=== PATIENT | male | born 1985 | race Caucasian/White ===

== ENCOUNTER → 2020-08-28 14:28 | Outpatient (BNVA) | payer OTHER, SELFPAY | PROVIDERS: Visit Provider Nurse Practitioner Psychiatric/Mental Health | DX: F11.99 Opioid use, unspecified with unspecified opioid-induced disorder (principal); Z51.81 Encounter for therapeutic drug level monitoring | CPT/HCPCS: 80305; 99211 ==

== ENCOUNTER → 2020-09-25 13:23 | Outpatient (BNVA) | payer OTHER, SELFPAY | PROVIDERS: Visit Provider Nurse Practitioner Psychiatric/Mental Health | DX: Z76.89 Persons encountering health services in other specified circumstances (principal) ==

== ENCOUNTER → 2020-10-23 15:00 | Outpatient (BNVA) | payer OTHER, SELFPAY | PROVIDERS: Visit Provider Nurse Practitioner Psychiatric/Mental Health | DX: Z76.89 Persons encountering health services in other specified circumstances (principal) ==

== ENCOUNTER → 2020-11-20 14:41 | Outpatient (BNVA) | payer OTHER, SELFPAY | PROVIDERS: Visit Provider Nurse Practitioner Psychiatric/Mental Health | DX: Z76.89 Persons encountering health services in other specified circumstances (principal) ==

== ENCOUNTER → 2020-12-18 14:35 | Outpatient (BNVA) | payer OTHER, SELFPAY | PROVIDERS: Visit Provider Nurse Practitioner Psychiatric/Mental Health ==

== ENCOUNTER → 2021-01-15 14:33 | Outpatient (BNVA) | payer OTHER, SELFPAY | PROVIDERS: Visit Provider Nurse Practitioner Psychiatric/Mental Health | DX: F11.21 Opioid dependence, in remission (principal) | CPT/HCPCS: 99212 ==

== ENCOUNTER → 2021-02-12 09:08 | Outpatient (BNVA) | payer OTHER, SELFPAY | PROVIDERS: Visit Provider Nurse Practitioner Psychiatric/Mental Health ==

== ENCOUNTER → 2021-03-11 14:40 | Outpatient (BNVA) | payer OTHER, SELFPAY | PROVIDERS: Visit Provider Nurse Practitioner Psychiatric/Mental Health | DX: Z51.81 Encounter for therapeutic drug level monitoring (principal) | CPT/HCPCS: 80305; 99211 ==

== ENCOUNTER → 2021-04-09 14:35 | Outpatient (BNVA) | payer OTHER, SELFPAY | PROVIDERS: Visit Provider Nurse Practitioner Psychiatric/Mental Health ==

== ENCOUNTER → 2021-05-07 14:13 | Outpatient (BNVA) | payer OTHER, SELFPAY | PROVIDERS: Visit Provider Nurse Practitioner Psychiatric/Mental Health ==

== ENCOUNTER → 2021-07-02 14:25 | Outpatient (BNVA) | payer OTHER, SELFPAY | PROVIDERS: Visit Provider Nurse Practitioner Psychiatric/Mental Health ==

== ENCOUNTER → 2021-08-06 16:13 | Outpatient (BNVA) | payer OTHER, SELFPAY | PROVIDERS: Visit Provider Nurse Practitioner Psychiatric/Mental Health ==

== ENCOUNTER → 2021-08-27 15:54 | Outpatient (BNVA) | payer OTHER, SELFPAY | PROVIDERS: Visit Provider Nurse Practitioner Psychiatric/Mental Health ==

== ENCOUNTER → 2021-10-22 14:28 | Outpatient (BNVA) | payer OTHER, SELFPAY | PROVIDERS: Visit Provider Nurse Practitioner Psychiatric/Mental Health | DX: Z51.81 Encounter for therapeutic drug level monitoring (principal); F11.21 Opioid dependence, in remission | CPT/HCPCS: 80305; 99212 ==

== ENCOUNTER → 2022-01-07 16:26 | Outpatient (BNVA) | payer OTHER, SELFPAY | PROVIDERS: Visit Provider Nurse Practitioner Psychiatric/Mental Health ==

== ENCOUNTER → 2022-03-04 16:05 | Outpatient (BNVA) | payer OTHER, SELFPAY | PROVIDERS: Visit Provider Nurse Practitioner Psychiatric/Mental Health | DX: Z13.89 Encounter for screening for other disorder (principal) ==

== ENCOUNTER → 2022-06-03 15:12 | Outpatient (BNVA) | payer OTHER, SELFPAY | PROVIDERS: Visit Provider Nurse Practitioner Psychiatric/Mental Health | DX: Z51.81 Encounter for therapeutic drug level monitoring (principal); F11.21 Opioid dependence, in remission | CPT/HCPCS: 80305; 99212 ==

== ENCOUNTER → 2022-08-27 15:55 | Outpatient (BNVA) | payer OTHER, SELFPAY | PROVIDERS: Visit Provider Nurse Practitioner Psychiatric/Mental Health | DX: Z51.81 Encounter for therapeutic drug level monitoring (principal); F11.21 Opioid dependence, in remission | CPT/HCPCS: 80305; 99212 ==

== ENCOUNTER → 2022-11-25 15:57 | Outpatient (BNVA) | payer OTHER, SELFPAY | PROVIDERS: Visit Provider Nurse Practitioner Psychiatric/Mental Health | DX: Z13.89 Encounter for screening for other disorder (principal) ==

== ENCOUNTER → 2023-02-24 15:49 | Outpatient (BNVA) | payer OTHER, SELFPAY | PROVIDERS: PCP Physician Assistant Medical; Visit Provider Nurse Practitioner Psychiatric/Mental Health | DX: Z51.81 Encounter for therapeutic drug level monitoring (principal); F11.21 Opioid dependence, in remission | CPT/HCPCS: 80305; 99212 ==

== ENCOUNTER → 2023-05-17 09:00 | Outpatient (BNVA) | payer OTHER, SELFPAY | PROVIDERS: PCP Physician Assistant Medical; Visit Provider Nurse Practitioner Psychiatric/Mental Health | DX: F11.21 Opioid dependence, in remission (principal); Z51.81 Encounter for therapeutic drug level monitoring ==

== ENCOUNTER 2023-08-16 09:57 | Outpatient (AMB) | payer OTHER, SELFPAY ==
--- NOTE | 2023-08-16 10:12 | MHC.OFFVIS ---
Intake Vital Signs 08/16/23 10:14 BP 120/80 Blood Pressure Location Lt brachial Position Sitting Pulse 86 Pulse Oximetry (%) 96 Intake Visit Reasons: MAT Visit Allergies No Known Allergies [No Known Allergies*] Allergy (Verified 02/24/23 15:59) HPI MAT Visit HPI Details Patient presents for follow up currently prescribed suboxone 8mg QD patient reports recovery continues to go well and he feels well supported and connected to family and close friends Would like to start tapering his dose. Reviewed options for this and discussed benefits of slow dose decrease [facility] Medical History (Updated 05/17/23 @ 17:28 by Hyun Tidwell CNP) Opioid use disorder, severe, in early remission, on maintenance therapy, dependence Review of Systems Const Reports as per HPI and Reports no additional complaints Physical Exam Vital Signs: Last Vital Signs Pulse 86 08/16/23 10:14 BP 120/80 08/16/23 10:14 Pulse Ox 96 08/16/23 10:14 Const General: cooperative, healthy appearing, no acute distress and alert Nutritional Appearance: well nourished Orientation/consciousness: patient oriented x3 Limitations: no limitations Neuro General: patient oriented x3 Psych Appearance: well kempt Mental Status: mental status grossly normal Speech and movement: Normal speech and movement present Affect: normal affect Attitude: cooperative Thought process: Normal thought process present Thought content: Normal thought content present Insight: Good insight present (Psych) Judgement: Good judgement present (Psych) Assessment & Plan Assessment & Plan (1) Opioid use disorder, severe, in sustained remission, on maintenance therapy: Code(s): F11.21 - Opioid dependence, in remission Plan: suboxone dose to remain at 8mg QD, however changing to 4mg BID. Encouraged to start off by decreasing by 1/4 of film for at least 3 weeks before attempting to decrease again encouraged to call office prior to next appt if necessary follow up 3 months Medications: New buprenorphine-naloxone 4-1 mg (Suboxone) 1 film sublingual BID 60 ea 2RF Discontinued buprenorphine-naloxone 8-2 mg (Suboxone) Discontinued Reason: Doctor's Order 1 film sublingual DAILY 30 film 2RF Coding Level of Care Code Est Pt Level 4 (24051) Diagnoses Opioid use disorder, severe, in sustained remission, on maintenance therapy F11.21
[2023-08-16 10:14] VITALS: BP 120/80; PULSE 86; O2SAT 96
== END 2023-08-16 10:40 | disposition home or self-care (01) ==
LOC: HO.HCC 09:58
PROVIDERS: PCP Physician Assistant Medical; Visit Provider Nurse Practitioner Psychiatric/Mental Health
DX: F11.21 Opioid dependence, in remission (principal)
CPT/HCPCS: 99214

== ENCOUNTER → 2023-08-16 09:57 | Outpatient (BNVA) | payer OTHER, SELFPAY | PROVIDERS: PCP Physician Assistant Medical; Visit Provider Nurse Practitioner Psychiatric/Mental Health | DX: F11.21 Opioid dependence, in remission (principal) | CPT/HCPCS: 99212 ==

== ENCOUNTER 2023-11-15 09:18 | Outpatient (AMB) | payer OTHER, SELFPAY ==
--- NOTE | 2023-11-15 09:20 | A.OFFVISCC_ITS ---
Intake Intake Visit Reasons: MAT VISIT Allergies No Known Allergies [No Known Allergies*] Allergy (Verified 02/24/23 15:59) HPI MAT VISIT HPI Details Patient presents for follow up via teleheath Continues to do well with recovery. Dose is down to 4mg QD, though some days he finds he needs 6mg No questions or concerns at this time [facility] Medical History (Updated 11/15/23 @ 09:22 by Hyun Tidwell CNP) Opioid use disorder, severe, in early remission, on maintenance therapy, depe ndence Review of Systems Const Reports as per HPI and Reports no additional complaints Assessment & Plan Assessment & Plan (1) Opioid use disorder, severe, in sustained remission, on maintenance therapy: Code(s): F11.21 - Opioid dependence, in remission Plan: * continue suboxone at current dose * follow up 3 months in office Medications: Refilled buprenorphine-naloxone 4-1 mg (Suboxone) 1 film sublingual BID 60 ea 2RF Telehealth Telehealth Location of provider rendering services: practice address Location of patient: address on file Patient Identification confirmed using: Name, : Yes Telehealth method: voice only Patient verbally consented to treatment: Yes Patient verbally consented to billing insurance company: Yes Coding Level of Care Code Tele Est Pt Level 3 (61843) Diagnoses Opioid use disorder, severe, in sustained remission, on maintenance therapy F11.21 Time Spent (min) 25 Comment 15 mins with patient, remainder on chart review and documentation
== END 2023-11-15 09:32 | disposition home or self-care (01) ==
PROVIDERS: PCP Physician Assistant Medical; Visit Provider Nurse Practitioner Psychiatric/Mental Health
DX: F11.21 Opioid dependence, in remission (principal)
CPT/HCPCS: 99213

== ENCOUNTER → 2023-11-15 09:18 | Outpatient (BNVA) | payer OTHER, SELFPAY | PROVIDERS: PCP Physician Assistant Medical; Visit Provider Nurse Practitioner Psychiatric/Mental Health ==

== ENCOUNTER 2024-02-16 15:52 | Outpatient (AMB) | payer OTHER, SELFPAY ==
--- NOTE | 2024-02-16 15:54 | MHC.AM.SUB ---
Intake Vital Signs 02/16/24 16:01 BP 130/76 Blood Pressure Location Lt radial Position Sitting Pulse 74 Pulse Source Pulse Oximeter Pulse Oximetry (%) 96 Oxygen Delivery Method Room Air Intake Visit Reasons: MAT VISIT Intake Note: The patient presents for a mat visit Answering Service Agent Required: No Allergies No Known Allergies [No Known Allergies*] Allergy (Verified 02/24/23 15:59) Do you need a note to return to daycare/school/sports/work: No HPI MAT VISIT HPI Details Patient presents for MAT visit Is stable in recovery Reports work life and home life are normal Has no concerns today to discuss Has tapered his suboxone down to 2-4 mg daily. Most days he is only taking 2mg PFSH Medical History (Updated 11/15/23 @ 09:22 by Hyun Tidwell CNP) Opioid use disorder, severe, in early remission, on maintenance therapy, dependence Review of Systems Const Reports as per HPI Physical Exam Vital Signs: Last Vital Signs Pulse 74 02/16/24 16:01 BP 130/76 02/16/24 16:01 Pulse Ox 96 02/16/24 16:01 Oxygen Delivery Method Room Air 02/16/24 16:01 Const General: cooperative and no acute distress Resp Effort & Inspection: normal respiratory effort Psych Appearance: grossly normal Mental Status: mental status grossly normal Speech and movement: Normal speech and movement present Affect: normal affect Attitude: cooperative Assessment & Plan Assessment & Plan (1) Opioid use disorder, severe, in sustained remission, on maintenance therapy: Code(s): F11.21 - Opioid dependence, in remission Plan: -Discussed with him need for updated labwork, he will get done before next visit -Suboxone refilled 4mg daily -Mass pat reviewed -Follow up 3 months telehealth Orders: Orders Comprehensive Met. Panel Today F11.21 - Opioid dependence, in remission Medications: Changed From buprenorphine-naloxone 4-1 mg (Suboxone) 1 film sublingual BID 60 ea 2RF To buprenorphine-naloxone 4-1 mg (Suboxone) 1 film sublingual DAILY 30 ea 2RF Coding Level of Care Code Est Pt Level 3 (32013) Diagnoses Opioid use disorder, severe, in sustained remission, on maintenance therapy F11.21
[2024-02-16 16:01] VITALS: BP 130/76; PULSE 74; O2SAT 96
== END 2024-02-16 16:12 | disposition home or self-care (01) ==
PROVIDERS: PCP Physician Assistant Medical; Visit Provider Nurse Practitioner Family
DX: F11.21 Opioid dependence, in remission (principal)
CPT/HCPCS: 99213

== ENCOUNTER → 2024-02-16 15:52 | Outpatient (BNVA) | payer OTHER, SELFPAY | PROVIDERS: PCP Physician Assistant Medical; Visit Provider Nurse Practitioner Family | DX: F11.21 Opioid dependence, in remission (principal); Z79.899 Other long term (current) drug therapy; Z51.81 Encounter for therapeutic drug level monitoring | CPT/HCPCS: 99212 ==

== ENCOUNTER 2024-05-10 10:03 | Outpatient (AMB) | payer OTHER, SELFPAY ==
--- NOTE | 2024-05-10 10:09 | MHC.AM.SUB ---
Intake Visit Reasons: MAT Allergies No Known Allergies [No Known Allergies*] Allergy (Verified 02/24/23 15:59) [facility] MAT: Details: Patient presents via telehealth for OUD treatment and follow up Reports he has weaned down to 1mg q 48 hours States he is doing well with this dosing, no cravings or withdrawals On vacation now, just bought a new vehicle. He is feeling positive and reports things are going well [facility] Medical History (Updated 11/15/23 @ 09:22 by Hyun Tidwell CNP) Opioid use disorder, severe, in early remission, on maintenance therapy, dependence Review of Systems Const Reports as per [facility] Telehealth Telehealth Telehealth Platform: Telephone Location of provider rendering services: practice address Location of patient: address on file Patient Identification confirmed using: Name, : Yes Telehealth method: voice only Patient verbally consented to treatment: Yes Patient verbally consented to billing insurance company: Yes Patient informed of any privacy concerns related to visit: Yes Minutes spent on Phone/Video with Pt.: 10 Assessment & Plan Assessment & Plan (1) Opioid use disorder, severe, in sustained remission, on maintenance therapy: Code(s): F11.21 - Opioid dependence, in remission Category: Medical Plan: -Mauricio funk reviewed -Refill dose at 2mg daily to make it easier for pt to further decrease his dose -Encouraged him to call [facility] when he is able to completely stop his films if it is prior to his next appt -Follow up 3 months Medications: New buprenorphine-naloxone 2-0.[address] 1 strip/tab under (each) side of tongue 1 film buccal DAILY 30 ea 0RF Discontinued buprenorphine-naloxone 4-1 mg (Suboxone) Discontinued Reason: None 1 film sublingual DAILY 30 ea 2RF
== END 2024-05-10 10:12 | disposition home or self-care (01) ==
PROVIDERS: PCP Physician Assistant Medical; Visit Provider Nurse Practitioner Family
DX: F11.21 Opioid dependence, in remission (principal)
CPT/HCPCS: 99212

== ENCOUNTER → 2024-05-10 10:03 | Outpatient (BNVA) | payer OTHER, SELFPAY | PROVIDERS: PCP Physician Assistant Medical; Visit Provider Nurse Practitioner Family | DX: F11.20 Opioid dependence, uncomplicated (principal) ==

== ENCOUNTER 2024-08-01 14:46 | Outpatient (AMB) | payer OTHER, SELFPAY ==
--- NOTE | 2024-08-01 15:16 | MHC.AM.SUB ---
Intake Visit Reasons: MAT visit Allergies No Known Allergies [No Known Allergies*] Allergy (Verified 02/24/23 15:59) HPI HPI MAT visit: Details: Patient presents for follow up Currently prescribed Suboxone 2mg QD Continues to taper dose with goal of discontinuing medication discussed use of comfort medications if needed he reports he is no longer taking doxepin and finds melatonin to be more effective working FT, spending time with friends future oriented [facility] Medical History (Updated 11/15/23 @ 09:22 by Hyun Tidwell CNP) Opioid use disorder, severe, in early remission, on maintenance therapy, dependence Review of Systems Const Reports as per HPI and Reports no additional complaints Physical Exam Const General: cooperative, healthy appearing, comfortable and well groomed Nutritional Appearance: average body habitus Orientation/consciousness: patient oriented x3 Limitations: no limitations Neuro General: patient oriented x3 Assessment & Plan Assessment & Plan (1) Opioid use disorder, severe, in sustained remission, on maintenance therapy: Code(s): F11.21 - Opioid dependence, in remission Category: Medical Plan: will continue taper on his own will call for refill when needed encouraged to call or message if comfort medications are needed follow up 3 months telehealth Medications: Discontinued doxepin Discontinued Reason: Patient no longer taking 25 mg PO BEDTIME 90 caps 1RF
== END 2024-08-01 15:20 | disposition home or self-care (01) ==
PROVIDERS: PCP Physician Assistant Medical; Visit Provider Nurse Practitioner Psychiatric/Mental Health
DX: F11.21 Opioid dependence, in remission (principal)
CPT/HCPCS: 99214

== ENCOUNTER → 2024-08-01 14:46 | Outpatient (BNVA) | payer OTHER, SELFPAY | PROVIDERS: PCP Physician Assistant Medical; Visit Provider Nurse Practitioner Psychiatric/Mental Health | DX: F11.21 Opioid dependence, in remission (principal) | CPT/HCPCS: 99212 ==

== ENCOUNTER 2024-10-24 12:58 | Outpatient (AMB) | payer OTHER, SELFPAY ==
--- NOTE | 2024-10-24 19:03 | A.OFFVISCC_ITS ---
Intake Visit Reasons: MAT Tele Allergies No Known Allergies [No Known Allergies*] Allergy (Verified 02/24/23 15:59) [facility] MAT Tele: Details: Patient presents for follow up via telehealth Currently prescribed Suboxone 2mg QD He reports he continues to take btwn 1-2mg daily has not moved forward with tapering as he previously has planned to has been working and helping his parents his goal is to obtain employment with his town Denies any changes to medical history, including no new medications Review of Systems Const Reports as per [facility] Telehealth Telehealth Telehealth Platform: Telephone Location of provider rendering services: practice address Location of patient: address on file Patient Identification confirmed using: Name, : Yes Telehealth method: voice only Patient verbally consented to treatment: Yes Patient verbally consented to billing insurance company: Yes Minutes spent on Phone/Video with Pt.: 15 Assessment & Plan Assessment & Plan (1) Opioid use disorder, severe, in sustained remission, on maintenance therapy: Code(s): F11.21 - Opioid dependence, in remission Category: Medical Plan: * continue suboxone at current dose * follow up 3 months [facility] Medical History (Updated 11/15/23 @ 09:22 by Hyun Tidwell CNP) Opioid use disorder, severe, in early remission, on maintenance therapy, dependence
--- OUTSIDE RECORDS SUMMARY | 2024-10-30 19:19 | XMS_ITS | Data Portability ---
Author Organization [facility], Main Office Address [address] [place] [address] Care Team Providers Care Human Resources Manager Manufacturing Name Role Phone [facility] OTHER Assessment Encounter Date Assessment Date Assessment LastModified by Organization Details LastModified Time 10/26/2019 10/26/201910/24 k 2.9, bun 7, creat 0.9 10/23 hgb 7.7, hct 23.6 Not available 10/26/2019 13:50:41 10/29/2019 10/29/201910/29 bun 8, creat 1.1, na 138, k 4.5, wbc 3.98, hgb 8.5, hct 27.0 Not available 10/29/2019 14:41:48 11/01/2019 11/01/201910/29 bun 8, creat 1.1, na 138, k 4.5, wbc 3.98, hgb 8.5, hct 27.0 glord Not available 11/01/2019 11:12:46 11/06/2019 11/06/201910/29 bun 8, creat 1.1, na 138, k 4.5, wbc 3.98, hgb 8.5, hct 27.0 11/05 bun 7, creat 0.9, na 141, k 4.1, wbc 5.65, hgb 9.1, hct 29.7, CRP 70.0, ESR 73 Not available 11/06/2019 09:41:17 Plan of Treatment Reminders Order Date Submit Date Provider Last Modified By Organization Details Last Modified Time Details Appointments None record ed. Lab None record ed. Referral None record ed. Procedures None record ed. Surgeries None record ed. Imaging None record ed. Medication Orders None record ed. Patient TargetsNo targets recorded. Patient InstructionsNo instructions recorded. Reason for Referral None Reported. Problems Name Problem SNOMED Code Status Onset Date Resolution Date Notes Provider Name and Address Organization Details Recorded Time Endocardit is 90750811 Active 2018 Ingrid [facility] 9 11:12:17 Drug abuse 50885747 Active 2018 Ingrid [facility] 9 11:12:17 Acute injury of kidney 1907903103263 4108 [facility] 11:12[facility] Iron deficiency anemia 80012507 [facility] 11:12:20 Peripheral edema 577063196 [facility] 11:12:21 Acute right-side d heart failure 285892806 [facility] 11:12:23 Asthenia 80533316 [facility] 11:15:41 Low back pain 432942601 [facility] 11:15:42 Essential hypertensi on 07775702 Active 2018 Jody Burns MD [address] [place] [address] [address], [place], [address] [facility] NP [employer] [facility] 9 16:15:02 Problem Notes None recorded. Medical Equipment None Reported. Allergies No known drug allergies Vitals Date Recorded Body height Heart rate Body temperature Systolic blood pressure Diastolic blood pressure Provider Name and Address Organization Details Last Updated DateTime 10/26/2019 157.48 cm 115 /min 98.9 [degF] 166 mm[Hg] 100 mm[Hg] Nat Hayes [facility] NP [employer] [facility] 9 13:47:32 Date Recorded Body height Systolic blood pressure Diastolic blood pressure Provider Name and Address Organization Details Last Updated DateTime 10/29/2019 157.48 cm 122 mm[Hg] 87 mm[Hg] Nat Freddy [facility] 10/29/2019 14:38:15 Date Recorded Body height Body mass index (BMI) Body weight Systolic blood pressure Diastolic blood pressure Provider Name and Address Organization Details Last Updated DateTime 11/01/2019 157.48 cm 47.2 kg/m2 383233.8 3 g 122 mm[Hg] 79 mm[Hg] IVIS [address], [address], [place], [address] [facility] 11:10:41 Date Recorded Body height Systolic blood pressure Diastolic blood pressure Provider Name and Address Organization Details Last Updated DateTime 11/06/2019 157.48 cm 140 mm[Hg] 78 mm[Hg] Nat Sealses [facility] 11/06/2019 08:57:22 Date Recorded Body height Body mass index (BMI) Body weight Oxygen saturation Oxygen saturation in Arterial blood by Pulse oximetry Heart rate Respiratory rate Body temperature Systolic blood pressure Diastolic blood pressure Provider Name and Address Organization Details Last Updated DateTime 9 157.48 cm 47.2 kg/m2 700799. 83 g 98 % 98 % 1102 /min 20 /min 98.7 [degF] 143 mm[Hg] 98 mm[Hg] Jody Burns MD [address] [facility], [address], [place], [address] [place] [address] 9 15:38:19 Social History Question Answer Notes LastModified by Organizat ion Details LastModified Time Tobacco Smoking Status Current Every Day Smoker cutting back Not Available [facility] 09/16/2020 03:13:21 Do You Have An Advance Directive? No No Molst - Assume Full Code [id number] Information not available 09/16/2020 What Is Your Level Of Alcohol Consumption? Occasional [id number] Information not available 09/16/2020 How Much Tobacco Do You Chew? None [id number] Information not available 09/16/2020 Do You Or Have You Ever Used E-cigarettes Or Vape? Former User Of Electronic Cigarettes [id number] Information not available 09/16/2020 Do You Have A Medical Power Of Manager Environmental Health? No [id number] Information not available 09/16/2020 What Was The Date Of Your Most Recent Tobacco Screening? 10/15/2019 [id number] Information not available 09/16/2020 Do You Or Have You Ever Used Smokeless Tobacco? Never Used Smokeless Tobacco [id number] Information not available 09/16/2020 How Much Tobacco Do You Smoke? 0.5 PPD [id number] Information not available 09/16/2020 On What Date Was Tobacco Cessation Counseling Provided? 10/15/2019 [id number] Information not available 09/16/2020 Sex: Unknown Functional Status None recorded. Mental Status None recorded. Family History Nothing Reported. Medical History No medical history recorded. Past Encounters Encounter ID Performer Location Encounter Start Date Encounter Closed Date Diagnosis/Indication Diagnosis SNOMED-CT Code Diagnosis ICD10 Code [id number] Ingrid Saunders [facility] on [address] [place] [phone] 10/13/2019 10:36:06 10/30/2019 11:35:27 Drug abuse 67235296 F19.10 Acute inju ry of kidney 4601083023 4154603 N17.9 Iron defic iency anemia 92389580 D50.8 Peripheral edema 9224796 00 R60.1 Endocarditis 98954417 I3 6.8 Acute righ t-sided heart failure 983301621 I50.811 Asthenia 50599360 R53.1 Low back pain 275142948 M54.5 [id number] Jody Burns MD [facility] on [address] [place] [id number] 10/15/2019 13:01:21 10/30/2019 11:43:35 Endocarditis 77487876 I36.8 Drug abuse 12354906 F19. 10 Acute inju ry of kidney 3867993327 1915230 N17.9 Iron defic iency anemia 66015859 D50.8 Peripheral edema 2057879 00 R60.1 Acute righ t-sided heart failure 303886956 I50.811 Asthenia 58973407 R53.1 Low back pain 519368870 M54.5 Diarrhea 64065283 R19.7 [id number] Nat Freddy [facility] on [address] [place] [id number] 10/17/2019 16:39:05 10/30/2019 12:46:02 Endocarditis 46457845 I36.8 Iron defic iency anemia 27058726 D50.8 Acute righ t-sided heart failure 716680808 I50.811 Insomnia 771831174 G47.0 9 [id number] IVIS HORTON [facility] on [address] [place] [id number] 10/19/2019 09:54:51 10/30/2019 12:56:23 Iron deficiency anemia 67207329 D50.8 Acute righ t-sided heart failure 567297184 I50.811 [id number] Nat Hayes [facility] on [address] [place] [id number] 10/22/2019 16:58:55 10/30/2019 12:57:35 Iron deficiency anemia 73550541 D50.8 Acute righ t-sided heart failure 751652955 I50.811 Hypokalemia 41864415 E87 .6 [id number] Nat Hayes [facility] on [address] [place] [id number] 10/26/2019 13:39:28 10/30/2019 16:09:07 Iron deficiency anemia 65153878 D50.8 Essential hypertension 30846592 I10 Hypokalemia 49996626 E87 .6 [id number] Nat Hayes [facility] on [address] [place] [id number] 10/29/2019 14:20:35 11/02/2019 16:23:13 Acute right-sided heart failure 311895282 I50.811 Endocarditis 14162151 I3 6.8 Hypokalemia 18936288 E87 .6 [id number] IVIS [facility] on [address] [place] [id number] 11/01/2019 11:08:28 11/05/2019 16:05:47 Acute right-sided heart failure 568455320 I50.811 Endocarditis 43217928 I3 6.8 [id number] [facility] [address] [place] [id number] 11/06/2019 08:48:47 11/09/2019 11:35:26 Acute right-sided heart failure 798653173 I50.811 Endocarditis 00038667 I3 6.8 [id number] Jody Burns MD [facility] on [address] [place] [address] 11/15/2019 14:09:49 11/23/2019 11:46:34 Endocarditis 26163252 I36.8 Drug abuse 52350585 F19. 10 Acute inju ry of kidney 0330981919 1919607 N17.8 Iron defic iency anemia 65634143 D50.8 Peripheral edema 3285678 00 R60.1 Acute righ t-sided heart failure 367568080 I50.811 Asthenia 20434569 R53.1 Low back pain 156002270 M54.5 Essential hypertension 32373972 I10 Health Concerns Section Related Observation LastModified by Organization Detai ls LastModified Time None Recorded Concern Status LastModified by Organization Details LastModified Time None Recorded Advance Directives Directive N: no molst - assume full co de Payers Encounter Date Sequence Insurance Name Policy Number Policy Rdz Covered Member ID Rdz Member ID Guarantor Name 10/26/2019 1 [facility] (MEDICAID REPLACEMENT - HMO) JACOB Ash [id number] Yuan Mihir 10/29/2019 1 [facility] (MEDICAID REPLACEMENT - HMO) JACOB Ash [id number] Yuan Santaarmando 11/01/2019 1 [facility] (MEDICAID REPLACEMENT - HMO) JACOB Ash [id number] Yuan Santaarmando 11/06/2019 1 [facility] (MEDICAID REPLACEMENT - HMO) JACOB Ash [id number] Yuan Santaarmando 11/15/2019 1 [facility] (MEDICAID REPLACEMENT - HMO) JACOB Ash [id number] Yuan Ash Notes Date Note Type Note Provider Name and Address Organization Details Recorded Time 10/26/2019 text/html 34 yo male seen for report of elevated BP and HR today. Patient denies complaints currently. Recently received blood transfusion due to worsening anemia. Patient denies any dark or black stools or blood in stool. [facility] 10/26/2019 13:50:55 10/29/2019 text/html 34 yo male seen for continued edema to bilateral lower extremities. Patient here for IV antibiotic treatment for endocarditis. Patient denies SOB. [facility] 10/29/2019 14:43:04 11/01/2019 text/html This is a 34 yo male seen for continued edema to bilateral lower extremities and increasing edema to his scrotum today. Patient here for IV antibiotic treatment for endocarditis. He denies any SOB but explains that his testicles are extremely swollen and its getting harder to get comfortable. He denies any redness, warmth or pain, just swelling. Patient has had constant issues with this since admission. IVIS HORTON [address] [facility], [address], [place], [address], [facility] NP [employer] [facility] 11/01/2019 11:14:14 11/06/2019 text/html 34 yo male seen for 30 day routine rounding. 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 Patient continues to c/o significant lower extremity edema. Denies SOB or chest pain. Nat [facility] 11/06/2019 09:43:06 11/15/2019 text/html I am seeing this 34 yo man in anticipation of d/c tomorrow. 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 Echo showed moderate tricuspid regurg and 1.4 cm mass attached to valve. Chest CT showed multiple septic emboli. He has progressed well with therapy, but does still have some ABBASI, but resolves quickly with rest. He will be completing his IV nafcillin tomorrow and will be ready for d/c. He says overall he is feeling much better and feels ready for d/c He was started on suboxone inpt. He feels he will not need that shelter as he was clean for 10 yrs with no other tx, but will continue for now. Went to clinic today to get started on outpt plan. His PMH includes IV drug abuse, lumbar stenosis, endocarditis with right sided HF, anemia, and edema. Jody Burns MD [address] [facility], [address], [place], [address], [facility] 11/15/2019 16:15:41
== END 2024-10-24 14:23 | disposition home or self-care (01) ==
PROVIDERS: PCP Physician Assistant Medical; Visit Provider Nurse Practitioner Psychiatric/Mental Health
DX: F11.21 Opioid dependence, in remission (principal)
CPT/HCPCS: 99213

== ENCOUNTER 2025-01-16 15:44 | Outpatient (AMB) | payer OTHER, SELFPAY ==
--- NOTE | 2025-01-16 16:36 | MHC.AM.SUB ---
Intake Visit Reasons: MAT Office Allergies No Known Allergies [No Known Allergies*] Allergy (Verified 02/24/23 15:59) HPI HPI MAT Office: Details: Patient presents for follow up Currently prescribed Suboxone 2mg daily. 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 no questions or concerns at this time Review of Systems Const Reports as per HPI and Reports no additional complaints Physical Exam Const General: cooperative, healthy appearing, comfortable and well groomed Nutritional Appearance: average body habitus Orientation/consciousness: patient oriented x3 Limitations: no limitations Neuro General: patient oriented x3 [facility] Medical History (Updated 11/15/23 @ 09:22 by Hyun Tidwell CNP) Opioid use disorder, severe, in early remission, on maintenance therapy, dependence Assessment & Plan Assessment & Plan (1) Opioid use disorder, severe, in sustained remission, on maintenance therapy: Code(s): F11.21 - Opioid dependence, in remission Category: Medical Plan: continue suboxone at current dose follow up 6 months
--- OUTSIDE RECORDS SUMMARY | 2025-01-16 19:16 | XMS_ITS | Data Portability ---
Author Organization [facility], Main Office Address [address] [facility] [address] [place] [address] Care Team Providers Care Lidar Scientist Name Role Phone [facility] OTHER Assessment Encounter Date Assessment Date Assessment [...] Address Organization Details Recorded Time Endocardit is 64755995 Active 2018 Ingrid castle [facility] 9 11:12:17 Drug abuse 16957437 Active 2018 Ingrid castle [facility] 9 11:12:17 Acute injury of kidney 7203092965428 4108 Active 2018 [facility] 9 11:12:19 Iron deficiency anemia 93567838 Active 2018 [facility] 9 11:12:20 Peripheral edema 256717357 Active 2018 [facility] 9 11:12:21 Acute right-side d heart failure 719306447 Active 2018 [facility] 9 11:12:23 Asthenia 71998773 Active 2018 [facility] 9 11:15:41 Low back pain 686037345 Active 2018 [facility] 9 11:15:42 Essential hypertensi on 70401155 Active 2018 Jody Burns MD [address] [place] [address] [address], [place], [address] [facility] [employer] [facility] 9 16:15:02 Problem Notes None recorded. Medical Equipment None Reported. Allergies No known drug allergies Vitals Date Recorded Body height Heart rate Body temperature Systolic blood pressure Diastolic blood pressure Provider Name and Address Organization Details Last Updated DateTime 10/26/2019 157.48 cm 115 /min 98.9 [degF] 166 mm[Hg] 100 mm[Hg] Nat Hayes [facility] [employer] [facility] 9 13:47:32 Date Recorded Body height Systolic blood pressure Diastolic blood pressure Provider Name and Address Organization Details Last Updated DateTime 10/29/2019 157.48 cm 122 mm[Hg] 87 mm[Hg] Nat Freddy [facility] 10/29/2019 14:38:15 Date Recorded Body height Body mass index (BMI) Body weight Systolic blood pressure Diastolic blood pressure Provider Name and Address Organization Details Last Updated DateTime 11/01/2019 157.48 cm 47.2 kg/m2 618567.8 3 g 122 mm[Hg] 79 mm[Hg] IVIS [address] [facility], [address], [place], [address] [facility] 9 11:10:41 Date Recorded Body height Systolic blood pressure Diastolic blood pressure Provider Name and Address Organization Details Last Updated DateTime 11/06/2019 157.48 cm 140 mm[Hg] 78 mm[Hg] Nat Sealses [facility] 11/06/2019 08:57:22 Date Recorded Body height Body mass index (BMI) Body weight Oxygen saturation Oxygen saturation in Arterial blood by Pulse oximetry Heart rate Respiratory rate Body temperature Systolic blood pressure Diastolic blood pressure Provider Name and Address Organization Details Last Updated DateTime 9 157.48 cm 47.2 kg/m2 422734. 83 g 98 % 98 % 1102 /min 20 /min 98.7 [degF] 143 mm[Hg] 98 mm[Hg] Jody Burns MD [address] [facility], [address], [place], [address] [place] [address] 9 15:38:19 Social History Question Answer Notes LastModified by Organizat ion Details LastModified Time Tobacco Smoking Status Current Every Day Smoker cutting back Not Available [facility] 09/16/2020 03:13:21 Do You Have An Advance Directive? No No Molst - Assume Full Code [id number] Information not available 09/16/2020 What Is Your Level Of Alcohol Consumption? Occasional [id number] Information not available 09/16/2020 How Much Tobacco Do You Chew? None [id number] Information not available 09/16/2020 Do You Or Have You Ever Used E-cigarettes Or Vape? Former User Of Electronic Cigarettes [id number] Information not available 09/16/2020 Do You Have A Medical Power Of Physician In Private Practice? No [id number] Information not available 09/16/2020 What Was The Date Of Your Most Recent Tobacco Screening? 10/15/2019 [id number] Information not available 09/16/2020 Do You Or Have You Ever Used Smokeless Tobacco? Never Used Smokeless Tobacco [id number] Information not available 09/16/2020 How Much Tobacco Do You Smoke? 0.5 PPD [id number] Information not available 09/16/2020 On What Date Was Tobacco Cessation Counseling Provided? 10/15/2019 [id number] Information not available 09/16/2020 Sex: Unknown Functional Status None recorded. Mental Status None recorded. Family History Nothing Reported. Medical History No medical history recorded. Past Encounters Encounter ID Performer Location Encounter Start Date Encounter Closed Date Diagnosis/Indication Diagnosis SNOMED-CT Code Diagnosis ICD10 Code Diagnosis Note [id number] Ingrid Saunders [facility] on [address] [place] [id number] 10/13/2019 10:36:06 10/30/2019 11:35:27 Drug abuse 74588147 F19.10 started on suboxone in acute care f/u with behavior health Acute inju ry of kidney 6441394748 1436157 N17.9 avoid nephrotoxi c meds as able monitor labs f/u nephrology prn Iron defic iency anemia 67453024 D50.8 hgb 8.3 in acute care, negative for occult blood, low iron. was given IV iron in acute care, now on po iron 324mg qd monitor labs, bowels Peripheral edema 9448483 00 R60.1 +2-3 firm to BLE on lasix 40mg bid for 5 days then to re-eval monitor Endocarditis 62606714 I3 6.8 on 2g nafcillin sodium q4hrs for 35 more days f/u ID Acute righ t-sided heart failure 377715734 I50.811 with fluid overload in acute care, now on lasix 40mg bid x5 days f/u cards prn Asthenia 45995267 R53.1 PT/OT to eval and treat Low back pain 333385042 M54.5 from a few weeks ago apparently after lifting a heavy object on suboxone PT/OT to eval and treat monitor [id number] Jody Burns MD [facility] on [address] [place] [phone] 10/15/2019 13:01:21 10/30/2019 11:43:35 Endocarditis 22348220 I36.8 Continue nafcillin 2 gms q4hrs for 35 more days f/u ID as planned. Labs not done yet. WIll order for tomorrow with ESR and CRP. Monitor weekly. Drug abuse 20401039 F19. 10 Continue suboxone 8/2 qAM and 2/0.5 qPM Provide supportive care. f/u with behavior health as planned. Acute inju ry of kidney 4396035716 1988603 N17.9 Labs not yet done. Will draw in AM aMoid nephrotoxi c meds as able monitor labs f/u nephrology prn Iron defic iency anemia 97286625 D50.8 hgb 8.3 in acute care, negative for occult blood, low iron. was given IV iron in acute care, now on po iron 324 mg qd monitor labs, bowels Peripheral edema 7350695 00 R60.1 +2-3 firm to BLE Continue lasix 40 mg bid for 5 days then to re-eval Monitor edema Acute righ t-sided heart failure 327675963 I50.811 Continues to c/o SOB with exertion, likely due to tricuspid regurg. Continue lasix as above. Monitor resp. status. f/u with cardio prn Asthenia 71031084 R53.1 Deconditio shiraz form illness Needs PT/OT for strengthen ing and function. Low back pain 959461115 M54.5 Some chronic issues, but worsening from a few weeks ago apparently after lifting refrigerat ors. Continue suboxone as above. On split dose to help with pain. PT/OT to eval and treat monitor Will start heat pack per pt. request Diarrhea 41295341 R19.7 Started in hospital, now with more cramps. Not on probiotic. Will start probiotic and use imodium prn. he says he was c. diff neg inpt. Will also start bentyl 20 mg QID. [id number] Nat Hayes [facility] on [address] [place] [address] 10/17/2019 16:39:05 10/30/2019 12:46:02 Endocarditis 10036255 I36.8 IV nafcillin 2 g Q4h x 6 weeks (end date 11/16)Prob ioticPT OT eval and treatF/u with IDMonitor weekly labs Iron defic iency anemia 69724011 D50.8 cont PO ironHgb now 7.5Repeat CBC 10/22 and consider transfusio n if <7 Acute righ t-sided heart failure 848474399 I50.811 Lasix 40 mg dailyAdd daily weightsMon itor fluid status Insomnia 634671816 G47.0 9 Add doxepin 10 mg QHSMonitor for effect [id number] IVIS HORTON [facility] on [address] [place] [phone] 10/19/2019 09:54:51 10/30/2019 12:56:23 Iron deficiency anemia 01704102 D50.8 Patient appears well right now with no complaints of dizziness , lightheade dness or palpitatio nshgb 6.6 today, send to ED for transfusio n as he would not be able to get in until tuesday Acute righ t-sided heart failure 510546727 I50.811 Lasix 80 mg dailyconti nue daily weights, lost 6 lbs from yesterdayM onitor fluid status [id number] Nat Hayes [facility] on [address] [place] [id number] 10/22/2019 16:58:55 10/30/2019 12:57:35 Iron deficiency anemia 90657314 D50.8 s/p 1 unit pRBC 10/19Repea t CBC in AM to ensure improving Acute righ t-sided heart failure 414922085 I50.811 Lasix 80 mg daily until 10/23-if potassium worsening will d/c thisEdema improved Hypokalemia 07180024 E87 .6 Repeat BMP STAT nowStart KCl 40 mEq TID [id number] Nat Hayes [facility] on [address] [place] [id number] 10/26/2019 13:39:28 10/30/2019 16:09:07 Iron deficiency anemia 39861878 D50.8 s/p 1 unit pRBC 10/19Repea t CBC STAT now Essential hypertension 66957689 I10 Start lisinopril 20 mg dailyMonit or bp Hypokalemia 81531522 E87 .6 Repeat BMP STAT nowCurrent ly on KCl 40 mEq TID [id number] Nat Hayes [facility] on [address] [place] [id number] 10/29/2019 14:20:35 11/02/2019 16:23:13 Acute right-sided heart failure 647763422 I50.811 Restart Lasix 40 mg dailyPotas sium 40 mEq TID-decrea se to BID and monitor Monitor weights and edemaNeeds cardiology f/u Endocarditis 91894930 I3 6.8 IV nafcillin 2 g Q4h x 6 weeks (end date 11/16)Prob ioticcont PT CORI/u with IDMonitor weekly labs Hypokalemia 39429511 E87 .6 Potassium level now WNLDecreas e KCl 40 mEq BID Monitor [id number] IVIS [facility] on [address] [place] [id number] 11/01/2019 11:08:28 11/05/2019 16:05:47 Acute right-sided heart failure 786826786 I50.811 Increase lasix to 80 mg daily- give extra 40 mg nowPotassi um 40 mEq BID, will need to monitor BMP with increase in lasix, obtain BMP tor weights and edemaNeeds cardiology f/u Endocarditis 72937275 I3 6.8 IV nafcillin 2 g Q4h x 6 weeks (end date 11/16)Prob ioticcont PT CORI/u with IDMonitor weekly labs [id number] [facility] [address] [place] [id number] 11/06/2019 08:48:47 11/09/2019 11:35:26 Acute right-sided heart failure 547197504 I50.811 Increase lasix to 80 mg BID-if ineffectiv e consider switch to bumexPotas sium 40 mEq TIDAdd 2 g NaCl restrictio nStart metoprolol 25 mg dailyLisin opril 20 mg daily Monitor weights and edemaNeeds cardiology f/u Endocarditis 96719593 I3 6.8 IV nafcillin 2 g Q4h x 6 weeks (end date 11/16)Prob ioticcont PT CORI/u with IDMonitor weekly labs [id number] Jody Burns MD [facility] on [address] [place] [address] [place] [address] 11/15/2019 14:09:49 11/23/2019 11:46:34 Endocarditis 48708278 I36.8 Will complete nafcillin 2 gms q4hrs tomorrow morning, then will have PICC line pulled. f/u ID as planned. Has f/u with cardio on 11/22 ESR and CRP still high but steadily improving. Drug abuse 51918274 F19. 10 Continue suboxone 8/2 qAM and 2/0.5 qPM F/U with suboxone clinic as planned. Acute inju ry of kidney 1992276723 2882724 N17.8 Labs back into nl. range. Has f/u with renal in 2 weeks. Avoid nephrotoxi c meds as able WIll monitor labs as outpt. Iron defic iency anemia 86313417 D50.8 Still low, but has been steadily improving. Continue po iron 324 mg qd. F/U with PCP as outpt. Peripheral edema 0889739 00 R60.1 Has been on lasix on and off, but currently stable on only lisinopril 20 mg qd. F/U with PCP and cardio as outpt. Acute righ t-sided heart failure 858244835 I50.811 SOB with exertion is improving. f/u with cardio Asthenia 22144795 R53.1 Much improved, will continue PT outpt as needed. Low back pain 051267631 M54.5 At baseline. F/U with PCP as outpt. Essential hypertension 87141403 I10 Up the last week or so. Continue lisinopril as above and f/u with PCP. Health Concerns Section Related Observation LastModified by Organization Detai ls LastModified Time None Recorded Concern Status LastModified by Organization Details LastModified Time None Recorded Advance Directives Directive N: no molst - assume full co de Payers Encounter Date Sequence Insurance Name Policy Number Policy Rdz Covered Member ID Rdz Member ID Guarantor Name 10/26/2019 1 [facility] (MEDICAID REPLACEMENT - HMO) JACOB Ash [id number] Yuan Ash 10/29/2019 1 [facility] (MEDICAID REPLACEMENT - HMO) JACOB Ash [id number] Yuan Alfonsopatrick 11/01/2019 1 [facility] (MEDICAID REPLACEMENT - HMO) JACOB Ahs [id number] Yuan Ash 11/06/2019 1 [facility] (MEDICAID REPLACEMENT - HMO) JACOB Alfonsoello [id number] Yuan Ash 11/15/2019 1 [facility] (MEDICAID REPLACEMENT - HMO) JACOB Alfonsoello [id number] Yuan Ash Notes Date Note Type Note Provider Name and Address Organization Details Recorded Time 10/26/2019 text/html 34 yo male seen for report of elevated BP and HR today. Patient denies complaints currently. Recently received blood transfusion due to worsening anemia. Patient denies any dark or black stools or blood in stool. Nat castle [facility] 10/26/2019 13:50:55 10/29/2019 text/html 34 yo male seen for continued edema to bilateral lower extremities. Patient here for IV antibiotic treatment for endocarditis. Patient denies SOB. Nat castle [facility] 10/29/2019 14:43:04 11/01/2019 text/html This is a [...] issues with this since admission. IVIS HORTON [address] [place] [address], [address], [place], [address], [facility] 11/01/2019 11:14:14 11/06/2019 text/html 34 yo male seen for 30 day routine rounding. 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 Patient continues to c/o significant lower extremity edema. Denies SOB or chest pain. Nat castle [facility] 11/06/2019 09:43:06 11/15/2019 text/html I am seeing [...] He feels he will not need that alf as he was clean for 10 yrs with no other tx, but will continue for now. Went to clinic today to get started on outpt plan. His PMH includes IV drug abuse, lumbar stenosis, endocarditis with right sided HF, anemia, and edema. Jody Burns MD [address] [place] [address], [address], [place], [address], [facility] [employer] 11/15/2019 16:15:41
== END 2025-01-16 16:12 | disposition home or self-care (01) ==
PROVIDERS: PCP Physician Assistant Medical; Visit Provider Nurse Practitioner Psychiatric/Mental Health
DX: F11.21 Opioid dependence, in remission (principal)
CPT/HCPCS: 99213

== ENCOUNTER → 2025-01-16 15:44 | Outpatient (BNVA) | payer OTHER, SELFPAY | PROVIDERS: PCP Physician Assistant Medical; Visit Provider Nurse Practitioner Psychiatric/Mental Health | DX: F11.20 Opioid dependence, uncomplicated (principal) | CPT/HCPCS: 99212 ==

== ENCOUNTER 2025-08-16 15:59 | Outpatient (AMB) | payer OTHER, SELFPAY ==
[2025-08-16 16:05] VITALS: BP 120/80; PULSE 110; O2SAT 98; BMI 24.3
--- NOTE | 2025-08-16 16:05 | MHC.OFFVIS ---
Vital Signs 08/16/25 16:05 Height 6 ft 2 in Weight 189 lb BMI 24.3 BP 120/80 Pulse 110 H Pulse Oximetry (%) 98 Intake Visit Reasons: MAT Allergies No Known Allergies (No Known Allergies*) Allergy (Verified 08/16/25 16:07) HPI Comments Details: History of Present Illness The patient is a 40-year-old male presenting with a six-month evaluation of opioid use disorder. He is currently managing his condition with a reduced dose of buprenorphine, 1 to 2 mg, paired with 0.5 mg of naloxone. Having utilized this treatment for five years, the patient now desires to discontinue usage within the next six months. He has chosen to avoid the use of injections to aid cessation. The patient denies experiencing constipation and does not perceive a need for counseling. Additionally, he has no suicidal or homicidal ideations. No past history of HIV or hepatitis C was reported. 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 Review of Systems - Neurological: Denies any suicidal or homicidal ideation. - Gastrointestinal: Denies constipation. - Psychological: Denies need for counseling. - Infectious Disease: Denies HIV. Denies hepatitis C. Physical Exam - Vitals- Stable. Results Plan Patient was informed and verbally consented to the use of an ambient scribe for clinic note documentation during this visit. 1. Opioid use, unspecified, uncomplicated F11.90 The patient plans to discontinue using buprenorphine, currently at a dose of 1 to 2 mg and 0.5 mg of naloxone, within six months without the aid of injections. He reports no side effects such as constipation and expresses no current need for counseling. He has not made future appointments but will return as needed. Discussion Notes During our discussion, the patient outlined his long-term strategy to cease buprenorphine without injections. We reviewed the implications of tapering off opioid treatment, emphasizing the importance of monitoring potential withdrawal symptoms. He declined further psychological support, such as counseling, and reported no symptoms of constipation. I reinforced the importance of follow-up should any issues arise, especially given his intention to self-manage his tapering over the following months. Although no appointment was made, the patient was advised to reach out for further evaluation if needed. Medical Decision Making The patient's desire to taper off buprenorphine is driven by his long-term use and current dosage reductions. He shows a preference for non-injection tapering and reports stable health without constipation or psychological distress, negating the need for immediate changes in medical support. Given his denial of HIV and hepatitis C and stable vitals, his self-management is feasible. I have recommended vigilance for withdrawal symptoms and openness to revisiting should his situation change. Patient Instructions - Gradually reduce buprenorphine dose over the next six months. - Monitor for any withdrawal symptoms. - Contact us if you experience any concerns or health changes. - No need for injections unless symptoms or opinion changes. - Stay engaged in current daily activities and notify us for any assistance needed. [facility] Medical History (Updated 11/15/23 @ 09:22 by Hyun Tidwell CNP) Opioid use disorder, severe, in early remission, on maintenance therapy, dependence Physical Exam Vital Signs: Last Vital Signs Pulse 110 H 08/16/25 16:05 BP 120/80 08/16/25 16:05 Pulse Ox 98 08/16/25 16:05 BMI result Body Mass Index 24.3 Assessment & Plan Assessment & Plan (1) Opioid use disorder, severe, in sustained remission, on maintenance therapy: Code(s): F11.21 - Opioid dependence, in remission Category: Medical Plan: na Plan na Medications: New buprenorphine-naloxone 2-0.5 mg (Suboxone) place 1 strip/tab under (each) side of tongue 1 film sublingual DAILY 30 ea 5RF 30 days Coding Level of Care Code Est Pt Level 3 (31515) Diagnoses Opioid use disorder, severe, in sustained remission, on maintenance therapy F11.21
--- OUTSIDE RECORDS SUMMARY | 2025-08-16 16:10 | XMS_ITS ---
Author Name [facility] Organization Unknown Care Team Organization Name Specialty Phone Email Start Date End Da te [facility] Kathleen Lozano DO Primary Care 02/22/202306/21 [facility] NULL Primary Care 09/28/2022 07/09/2024
--- OUTSIDE RECORDS SUMMARY | 2025-08-16 16:10 | XMS_ITS | Data Portability ---
Author Organization [facility], Main Office Address [address] [place] [address] Care Team Providers Care Control Engineer Name Role Phone [facility] OTHER Assessment Encounter Date Assessment Date [...] Address Organization Details Recorded Time Endocardit is 94009466 [facility]17 Drug abuse 99910728 Active 2018 [facility] 11:12:17 Acute injury of kidney 9730203978820 4108 Active 2018 [facility] 11:12:19 Iron deficiency anemia 73517635 Active 2018 [facility] 11:12:20 Peripheral edema 391381886 Active 2018 [facility] 11:12:21 Acute right-side d heart failure 513915809 Active 2018 [facility] 11:12:23 Asthenia 21480202 Active 2018 [facility] 11:15:41 Low back pain 694370959 Active 2018 [facility] 11:15:42 Essential hypertensi on 17439793 Active 2018 Jody Burns MD [address] [place] [address] [address], [place], [address] [facility] 9 16:15:02 Problem Notes None recorded. Medical Equipment None Reported. Allergies No known drug allergies Vitals Date Recorded Body height Heart rate Body temperature Systolic And Diastolic Provider Name and Address Organization Details Last Updated DateTime 10/26/2019 157.48 cm 115 /min 98.9 [degF] 166/100 mm[Hg] Nat Hayes [facility] 10/26/2019 13:47:32 Date Recorded Body height Systolic And Diastolic Provider Name and Address Organization Details Last Updated DateTime 10/29/2019 157.48 cm 122/87 mm[Hg] Nat Hayes [facility] 10/29/2019 14:38:15 Date Recorded Body height Body mass index (BMI) Body weight Systolic And Diastolic Provider Name and Address Organization Details Last Updated DateTime 11/01/2019 157.48 cm 47.2 kg/m2 822977.83 g 122/79 mm[Hg] IVIS HORTON [address], [address], [place], [address], [facility] 11/01/2019 11:10:41 Date Recorded Body height Systolic And Diastolic Provider Name and Address Organization Details Last Updated DateTime 11/06/2019 157.48 cm 140/78 mm[Hg] Nat Hayes [facility] 11/06/2019 08:57:22 Date Recorded Body height Body mass index (BMI) Body weight Oxygen saturation Oxygen saturation in Arterial blood by Pulse oximetry Heart rate Respiratory rate Body temperature Systolic And Diastolic Provider Name and Address Organization Details Last Updated DateTime 9 157.48 cm 47.2 kg/m2 521120. 83 g 98 % 98 % 1102 /min 20 /min 98.7 [degF] 143/98 mm[Hg] Jody Burns MD [address], [address], [place], [address], [facility] 9 15:38:19 Social History Question Answer Notes LastModified by [facility] Details LastModified Time Tobacco Smoking Status Current Every Day Smoker cutting back Not Available [facility] 09/16/2020 03:13:21 Do You Have An Advance Directive? No No Molst - Assume Full Code [id number] Information not available 09/16/2020 How Much Tobacco Do You Chew? None [id number] Information not available 09/16/2020 Do You Have A Medical Power Of Director [employer]? No [id number] Information not available 09/16/2020 What Was The Date Of Your Most Recent Tobacco Screening? 10/15/2019 [id number] Information not available 09/16/2020 How Much Tobacco Do You Smoke? 0.5 PPD [id number] Information not available 09/16/2020 On What Date Was Tobacco Cessation Counseling Provided? 10/15/2019 [id number] Information not available 09/16/2020 Sex: Unknown Functional Status Question Answer Note LastModified by Organizat ion Details LastModified Time What is your level of alcohol consumption? Occasional [id number] Information not available 09/16/2020 Do you or have you ever used smokeless tobacco? Never used smokeless tobacco [id number] Information not available 09/16/2020 Do you or have you ever used e-cigarettes or vape? Former user of electronic cigarettes [id number] Information not available 09/16/2020 Mental Status None recorded. Family History Nothing Reported. Medical History No medical history recorded. Past Encounters Encounter ID Performer Location Encounter Start Date Encounter Closed Date Diagnosis/Indication Diagnosis SNOMED-CT Code Diagnosis ICD10 Code Diagnosis IMO Codes Diagnosis Note [id number] Ingrid Saunders NP [facility] on [address] [place] [phone] 10/13/2019 10:36:06 10/30/2019 11:35:27 Drug abuse 33176839 F19.10 started on suboxone in acute care f/u with [facility] Acute inju ry of kidney 6132978150 0266925 N17.9 avoid nephrotoxi c meds as able monitor labs f/u nephrology prn Iron defic iency anemia 80622378 D50.8 hgb 8.3 in acute care, negative for occult blood, low iron. was given IV iron in acute care, now on po iron 324mg qd monitor labs, bowels Peripheral edema 8212032 00 R60.1 +2-3 firm to BLE on lasix 40mg bid for 5 days then to re-eval monitor Endocarditis 49126098 I3 6.8 on 2g nafcillin sodium q4hrs for 35 more days f/u ID Acute righ t-sided heart failure 026475501 I50.811 with fluid overload in acute care, now on lasix 40mg bid x5 days f/u cards prn Asthenia 87453555 R53.1 PT/OT to eval and treat Low back pain 232665596 M54.5 from a few weeks ago apparently after lifting a heavy object on suboxone PT/OT to eval and treat monitor [id number] Jody Burns MD [facility] on [address] [place] [id number] 10/15/2019 13:01:21 10/30/2019 11:43:35 Endocarditis 74693562 I36.8 Continue nafcillin 2 gms q4hrs for 35 more days f/u ID as planned. Labs not done yet. WIll order for tomorrow with ESR and CRP. Monitor weekly. Drug abuse 25155360 F19. 10 Continue suboxone 8/2 qAM and 2/0.5 qPM Provide supportive care. f/u with behavior health as planned. Acute inju ry of kidney 0229718661 2348727 N17.9 Labs not yet done. Will draw in AM aMoid nephrotoxi c meds as able monitor labs f/u nephrology prn Iron defic iency anemia 06183097 D50.8 hgb 8.3 in acute care, negative for occult blood, low iron. was given IV iron in acute care, now on po iron 324 mg qd monitor labs, bowels Peripheral edema 3491763 00 R60.1 +2-3 firm to BLE Continue lasix 40 mg bid for 5 days then to re-eval Monitor edema Acute righ t-sided heart failure 227398400 I50.811 Continues to c/o SOB with exertion, likely due to tricuspid regurg. Continue lasix as above. Monitor resp. status. f/u with cardio prn Asthenia 95846151 R53.1 Deconditio shiraz form illness Needs PT/OT for strengthen ing and function. Low back pain 566989102 M54.5 Some chronic issues, but worsening from a few weeks ago apparently after lifting refrigerat ors. Continue suboxone as above. On split dose to help with pain. PT/OT to eval and treat monitor Will start heat pack per pt. request Diarrhea 77678677 R19.7 Started in hospital, now with more cramps. Not on probiotic. Will start probiotic and use imodium prn. he says he was c. diff neg inpt. Will also start bentyl 20 mg QID. [id number] [address] [facility] [address] [place] [address] 10/17/2019 16:39:05 10/30/2019 12:46:02 Endocarditis 23995668 I36.8 IV nafcillin 2 g Q4h x 6 weeks (end date 11/16)Prob ioticPT OT eval and treatF/u with IDMonitor weekly labs Iron defic iency anemia 83329349 D50.8 cont PO ironHgb now 7.5Repeat CBC 10/22 and consider transfusio n if <7 Acute righ t-sided heart failure 614141013 I50.811 Lasix 40 mg dailyAdd daily weightsMon itor fluid status Insomnia 560372492 G47.0 9 Add doxepin 10 mg QHSMonitor for effect [id number] IVIS [facility] on [address] [place] [phone] 10/19/2019 09:54:51 10/30/2019 12:56:23 Iron deficiency anemia 80466386 D50.8 Patient appears well right now with no complaints of dizziness , lightheade dness or palpitatio nshgb 6.6 today, send to ED for transfusio n as he would not be able to get in until tuesday Acute righ t-sided heart failure 159273467 I50.811 Lasix 80 mg dailyconti nue daily weights, lost 6 lbs from yesterdayM onitor fluid status [id number] [address] [facility] on [address] [place] [phone] 10/22/2019 16:58:55 10/30/2019 12:57:35 Iron deficiency anemia 26306288 D50.8 s/p 1 unit pRBC 10/19Repea t CBC in AM to ensure improving Acute righ t-sided heart failure 649442907 I50.811 Lasix 80 mg daily until 10/23-if potassium worsening will d/c thisEdema improved Hypokalemia 55132004 E87 .6 Repeat BMP STAT nowStart KCl 40 mEq TID [id number] SHERE[address] [facility] on [address] [place] [phone] 10/26/2019 13:39:28 10/30/2019 16:09:07 Iron deficiency anemia 56235402 D50.8 s/p 1 unit pRBC 10/19Repea t CBC STAT now Essential hypertension 33911989 I10 Start lisinopril 20 mg dailyMonit or bp Hypokalemia 88842841 E87 .6 Repeat BMP STAT nowCurrent ly on KCl 40 mEq TID [id number] SH[address] [facility] on [address] [place] [phone] 10/29/2019 14:20:35 11/02/2019 16:23:13 Acute right-sided heart failure 128234272 I50.811 Restart Lasix 40 mg dailyPotas sium 40 mEq TID-decrea se to BID and monitor Monitor weights and edemaNeeds cardiology f/u Endocarditis 65555697 I3 6.8 IV nafcillin 2 g Q4h x 6 weeks (end date 11/16)Prob ioticcont PT CORI/u with IDMonitor weekly labs Hypokalemia 09645567 E87 .6 Potassium level now WNLDecreas e KCl 40 mEq BID Monitor [id number] IVIS [facility] on [address] [place] [phone] 11/01/2019 11:08:28 11/05/2019 16:05:47 Acute right-sided heart failure 101435091 I50.811 Increase lasix to 80 mg daily- give extra 40 mg nowPotassi um 40 mEq BID, will need to monitor BMP with increase in lasix, obtain BMP tor weights and edemaNeeds cardiology f/u Endocarditis 94909182 I3 6.8 IV nafcillin 2 g Q4h x 6 weeks (end date 11/16)Prob ioticcont PT CORI/u with IDMonitor weekly labs [id number] [address] [facility] on [address] [place] [phone] 11/06/2019 08:48:47 11/09/2019 11:35:26 Acute right-sided heart failure 353820504 I50.811 Increase lasix to 80 mg BID-if ineffectiv e consider switch to bumexPotas sium 40 mEq TIDAdd 2 g NaCl restrictio nStart metoprolol 25 mg dailyLisin opril 20 mg daily Monitor weights and edemaNeeds cardiology f/u Endocarditis 73278124 I3 6.8 IV nafcillin 2 g Q4h x 6 weeks (end date 11/16)Prob ioticcont PT CORI/u with IDMonitor weekly labs [id number] Jody Burns MD [facility] on [address] [place] [address] 11/15/2019 14:09:49 11/23/2019 11:46:34 Endocarditis 26323760 I36.8 Will complete nafcillin 2 gms q4hrs tomorrow morning, then will have PICC line pulled. f/u ID as planned. Has f/u with cardio on 11/22 ESR and CRP still high but steadily improving. Drug abuse 74073929 F19. 10 Continue suboxone 8/2 qAM and 2/0.5 qPM F/U with suboxone clinic as planned. Acute inju ry of kidney 5171571125 4881585 N17.8 Labs back into nl. range. Has f/u with renal in 2 weeks. Avoid nephrotoxi c meds as able WIll monitor labs as outpt. Iron defic iency anemia 74074243 D50.8 Still low, but has been steadily improving. Continue po iron 324 mg qd. F/U with PCP as outpt. Peripheral edema 3832455 00 R60.1 Has been on lasix on and off, but currently stable on only lisinopril 20 mg qd. F/U with PCP and cardio as outpt. Acute righ t-sided heart failure 713143509 I50.811 SOB with exertion is improving. f/u with cardio Asthenia 69082750 R53.1 Much improved, will continue PT outpt as needed. Low back pain 104654607 M54.5 At baseline. F/U with PCP as outpt. Essential hypertension 06947664 I10 Up the last week or so. Continue lisinopril as above and f/u with PCP. Health Concerns Section Related Observation LastModified by Organization Detai ls LastModified Time None Recorded Concern Status LastModified by Organization Details LastModified Time None Recorded Advance Directives Directive N: no molst - assume full co de Payers Insurance Date Sequence Insurance Name Policy Number Policy Rdz Covered Member ID Rdz Member ID Guarantor Name 11/23/2019 1 [facility] PL[facility] - Minimally invasive devices (MEDICAID REPLACEMENT - HMO) JACOB Ash [id number] Yuan Ash 11/07/2019 2 [facility] - [employer] [facility] (MEDICAID HMO) [id number] Yuan Ash [id number] Yuan Ash Notes Date Note Type Note Provider Name and Address Organization Details Recorded Time 10/26/2019 text/html 34 yo male seen for report of elevated BP and HR today. Patient denies complaints currently. Recently received blood transfusion due to worsening anemia. Patient denies any dark or black stools or blood in stool. Nat castle, [facility] 10/26/2019 13:50:55 10/29/2019 text/html 34 yo male seen for continued edema to bilateral lower extremities. Patient here for IV antibiotic treatment for endocarditis. Patient denies SOB. Nat Freddy castle [facility] 10/29/2019 14:43:04 11/01/2019 text/html This is a [...] issues with this since admission. IVIS HORTON [address] [place] [address], [address], [place], [address], [facility] 11/01/2019 11:14:14 11/06/2019 text/html 34 yo male seen for 30 day routine rounding. 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 Patient continues to c/o significant lower extremity edema. Denies SOB or chest pain. Nat castle [facility] 11/06/2019 09:43:06 11/15/2019 text/html I am seeing [...] He feels he will not need that usp as he was clean for 10 yrs with no other tx, but will continue for now. Went to clinic today to get started on outpt plan. His PMH includes IV drug abuse, lumbar stenosis, endocarditis with right sided HF, anemia, and edema. Jody Burns MD [address] [place] [address], [address], [place], [address], [facility] 11/15/2019 16:15:41
== END 2025-08-16 16:22 | disposition home or self-care (01) ==
LOC: HO.HCC 15:59
PROVIDERS: PCP Physician Assistant Medical; Visit Provider Internal Medicine
DX: F11.21 Opioid dependence, in remission (principal)
CPT/HCPCS: 99213

== ENCOUNTER → 2025-08-16 15:59 | Outpatient (BNVA) | payer OTHER, SELFPAY | PROVIDERS: PCP Physician Assistant Medical; Visit Provider Internal Medicine | DX: F11.21 Opioid dependence, in remission (principal) | CPT/HCPCS: 99212 ==